=== PATIENT | male | born 1960 | race Caucasian/White ===

== ENCOUNTER 2017-05-07 23:24 | Emergency (ER) | payer BC ==
[2017-05-07] MEDS ORDERED: LIDOCAINE 5% 1 PATCH PATCH ONE (23:57)
--- NOTE | 2017-05-07 23:57 | ER NURSING DOCUMENTATION ---
Nurse's Notes [facility] Name:Kalen Sargent Age:56 yrs Sex:Male :1960 Arrival Date:05/07/2017 Time:23:24 Bed1 Private MD: Diagnosis:Back Sprain Presentation: 05/07 23:26 Transition of care: Home. Notified ED Physician of Gregorio Hamilton notified. Care prior to lb arrival: Medication(s) given: Ibuprofen. 23:26 Acuity: SARAHY 4 lb 23:26 Method Of Arrival: Walk In lb 23:36 Presenting complaint: Patient states: low back pain after hiking today. took ibuprofen lb without relief. Triage Assessment: 23:33 General: Appears uncomfortable, Behavior is appropriate for age, pleasant. Pain: lb Complains of pain in left low back and right low back Pain does not radiate. Pain currently is 2 out of 10 on a pain scale. Quality of pain is described as aching, Pain began 4 hours ago. Neuro: No deficits noted. Cardiovascular: No deficits noted. Respiratory: No deficits noted. Musculoskeletal: Circulation, motion, and sensation intact Capillary refill < 3 seconds Range of motion intact in all extremities. Historical: - Allergies: No known drug Allergies; - Home Meds: 1. None - PMHx: None; - PSHx: HERNIA REPAIR; - Tetanus: < 10 years. - Ebola Screening: : Patient denies exposure to infectious person. Patient denies travel to an Ebola-affected area in the 21 days before illness onset. . - Immunization history: Flu Vaccine < 1 year. - Social history: Smoking status: Patient states was never smoker of tobacco. Patient uses alcohol only on a social basis. - Code Status:: Full code. Screenin:36 Infectious Disease Risk None. Abuse screen: Denies threats or abuse. Denies injuries lb from another. Nutritional screening: No deficits noted. Assessment: 23:35 See Triage Assessment done by same RN. Neuro: Level of Consciousness is awake, alert, lb Oriented to person, place, time, event. 23:35 Derm: Skin is intact, Skin is dry, Skin is pink, warm & dry. lb Vital Signs: 23:34 BP 176 / 96; Pulse 70; Resp 16; Temp 98.4; Pulse Ox 94% on R/A; Weight 79.38 kg; Height lb 5 ft. 9 in. (175.26 cm); Pain 2/10; 23:34 Body Mass Index 25.84 (79.38 kg, 175.26 cm) ED Course: 23:25 Patient arrived in ED. ma 23:26 Nasrin Monte is Primary Nurse. lb 23:32 Triage completed. lb 23:36 Valuables Remains with patient Patient has correct armband on for positive lb identification. Call light in reach. 23:43 Negro Perkins MD is Attending Physician. shawn Administered Medications: 23:48 Drug: Lidoderm Patch 2 patches; Route: Topical; Site: affected area; lb 23:56 Follow up: Response: Dispensed at discharge. lb 23:49 Drug: Valium 5 mg; Route: IM; Site: left deltoid; lb 23:56 Follow up: Response: Dispensed at discharge. lb 23:49 Drug: Percocet Tablet (5 mg-325 mg) 6 tabs; Route: PO; lb 23:49 Follow up: Response: Pharmacy closed - take home med pack Outcome: 23:48 Discharge ordered by . 23:56 Discharged to home ambulatory. 23:56 Condition: stable 23:56 Discharge Assessment: Patient awake, alert and oriented x 3. No cognitive and/or functional deficits noted. Patient verbalized understanding of disposition instructions. 23:56 Instructed on discharge instructions, follow up and referral plans. no drinking with medication, no driving heavy equipment. 23:57 Patient left the ED. 06 14:28 Discharge F/U Call: Unable to reach: left voicemail: [email or web address] Signatures: Negro Perkins MD MD jm Kruger, Meg, RN RN 2 Nasrin Monte [facility]
--- NOTE | 2017-05-07 23:57 | ER PHYSICIAN DOCUMENTATION ---
Physician Documentation [facility] Name:Kalen Sargent Age:56 yrs Sex:Male :1960 Arrival Date:05/07/2017 Time:23:24 Bed1 Private MD: Negro William Disposition: 05/07/17 23:48 Discharged to Home/Self Care. Impression: Back Sprain. - Condition is Good. - Discharge Instructions: Ache, Back - BACK SPASM, No Trauma. - Prescriptions for Percocet 5- 325 mg Oral - take 1 tablet by ORAL route every 6 hours As needed; 15 tablet. Valium 5 mg Oral - take 1 tablet by ORAL route every 8 hours As needed; 15 tablet. Lidoderm 5 %(700 mg/patch) Topical adhesive patch,medicated - apply 2 patch by TRANSDERMAL route once daily; 14 packet. - Medical Reconciliation form form. - Follow up: Private Physician; When: As needed; Reason: Continuance of care. - Problem is new. - Symptoms have improved. HPI: 05/08 00:00 This 56 yrs old Male presents to ER via Walk In with complaints of Back Pain. jm 00:00 The patient presents with pain that is acute. The symptoms are located in the low back. jm Onset: The symptoms/episode began/occurred today. Pt form out of town and did a long hike to [place] and got back and had some mild pain, but he sat and watched a movie w his family and got up form the cough and his back locked up on him. He now only can stand w comfort b/c sitting and laying down really hurts him. No leg weakness or urinary issues. . Historical: - Allergies: No known drug Allergies; - Home Meds: 1. None - PMHx: None; - PSHx: HERNIA REPAIR; - Tetanus: < 10 years. - Ebola Screening: : Patient denies exposure to infectious person. Patient denies travel to an Ebola-affected area in the 21 days before illness onset. . - Immunization history: Flu Vaccine < 1 year. - Social history: Smoking status: Patient states was never smoker of tobacco. Patient uses alcohol only on a social basis. - Code Status:: Full code. ROS: 00:00 Constitutional: Negative for fever. jm 00:00 Back: Positive for pain at rest, pain with movement. 00:00 : Negative for urinary symptoms, difficulty urinating, bladder incontinence. 00:00 Neuro: Negative for numbness, tingling. Exam: 00:00 Constitutional: The patient appears alert, awake, in obvious distress, mildly jm distressed, pacing around the room. 00:00 Back: pain, that is moderate, of the left low back and right low back, vertebral tenderness, is not appreciated. 00:00 Neuro: Memory: is normal, Motor: strength is 5/5 in all extremities, Gait: is steady. 00:00 Psych: Behavior/mood is pleasant, cooperative, Affect is calm. Vital Signs: 05/07 23:34 BP 176 / 96; Pulse 70; Resp 16; Temp 98.4; Pulse Ox 94% on R/A; Weight 79.38 kg; Height lb 5 ft. 9 in. (175.26 cm); Pain 2/10; 23:34 Body Mass Index 25.84 (79.38 kg, 175.26 cm) lb MDM: 23:31 Patient medically screened. 05/08 00:00 Differential diagnosis: back spasms. Data reviewed: vital signs, nurses notes, and as a result, I will discharge patient. Counseling: I had a detailed discussion with the patient and/or guardian regarding: the historical points, exam findings, and any diagnostic results supporting the discharge/admit diagnosis. ED course: Pt given IM shot of valium, bilateral lumbar lidoderm patches, and percocet for home. . Dispensed Medications: 05/07 23:48 Drug: Lidoderm Patch 2 patches; Route: Topical; Site: affected area; lb 23:56 Follow up: Response: Dispensed at discharge. lb 23:49 Drug: Valium 5 mg; Route: IM; Site: left deltoid; lb 23:56 Follow up: Response: Dispensed at discharge. lb 23:49 Drug: Percocet Tablet (5 mg-325 mg) 6 tabs; Route: PO; lb 23:49 Follow up: Response: Pharmacy closed - take home med pack lb Signatures: Negro Perkins MD MD jm Bollock, Lynda lb
[2017-05-07] MEDS ORDERED: DIAZEPAM 10 MG/2 ML SYR ONE (23:59)
[2017-05-08] MEDS ORDERED: oxyCODONE/APAP 5/325 MG PREPAC 1 TAB TABLET PO ONE (00:04)
== END 2017-05-07 23:57 | disposition home or self-care (01) ==
LOC: ER 23:24
DX: S39.012D Strain of muscle, fascia and tendon of lower back, subsequent encounter (principal); X50.0XXA Overexertion from strenuous movement or load, initial encounter; Y92.838 Other recreation area as the place of occurrence of the external cause; Y93.01 Activity, walking, marching and hiking
CPT/HCPCS: 96372; 99283; J3360